=== PATIENT | female | born 1965 | race Hispanic/Latino ===

== ENCOUNTER 2022-04-21 12:21 | Emergency (ER) | payer BC, OTHER ==
[2022-04-21] MEDS ORDERED: Ketorolac Tromethamine 30 MG/ML VIAL ONE (13:32)
== END 2022-04-21 13:50 | disposition home or self-care (01) ==
LOC: CSHERS 12:21
DX: G89.29 Other chronic pain (principal); M19.90 Unspecified osteoarthritis, unspecified site; E78.5 Hyperlipidemia, unspecified
CPT/HCPCS: 96372; 99283; J1885